=== PATIENT | female | born 1970 | race Caucasian/White ===

== ENCOUNTER 2017-04-18 23:28 | Observation (INO) | payer OTHER ==
[~2017-04-18] VITALS: Ht 170.2 cm; Wt 120.3 kg
--- NOTE | ~2017-04-18 | DS ---
PATIENT'S NAME: ILANA SPENCER [facility] AGE: 46 Y [address] ROOM: [address] [address] LOCATION: GPCU ADMIT DATE: 04/19/2017 Discharge Summary DISCHARGE DATE: 04/19/2017 FAMILY PHYSICIAN: PHYSICIAN, TIAN ATTENDING PHYSICIAN: Osorio Pitts DISCHARGE DIAGNOSES: 1. Esophagitis and gastritis. 2. Asthma. 3. Hypertension by history. PROCEDURE: Upper GI endoscopy by Dr. Henry. REASON FOR ADMISSION: Severe epigastric pain with a history of ulcers and recent nonsteroidal use. HOSPITAL COURSE: She was basically endoscoped by Dr. Henry, and he found the above. She is now perfectly asymptomatic and wants to go home. DISCHARGE INSTRUCTIONS: She will be discharged on diet and activity as ad nila and medications per nursing med recon form. I went over with her in great detail the fact that she needs to avoid nonsteroidals, and I think she understands at this point, but we will continue to reinforce that with her. Recommended she follow up with her primary doctor in 1 month for CBC and just general followup, sooner p.r.n. MD TYREE NG/denilson /[id number] d: 04/20/17 0404 t: 04/25/17 1739, DISCHARGE SUMMARY
--- NOTE | ~2017-04-18 | CON ---
PATIENT'S NAME: ILANA SPENCER [facility] AGE: 46 Y [address] ROOM: [address] [place], [place] [address] LOCATION: GPCU ADMIT DATE: 04/19/2017 Consultation DISCHARGE DATE: FAMILY PHYSICIAN: PHYSICIAN, TIAN ATTENDING PHYSICIAN: DWIGHT BROWN DATE OF CONSULTATION: 04/19/2017 REASON FOR CONSULTATION: Mid epigastric discomfort. HISTORY OF PRESENT ILLNESS: This is a very pleasant 46-year-old female who was admitted with midepigastric pain and bilateral hand numbness and swelling. The patient does recall having a history of peptic ulcer disease with the last endoscopy performed in May of 2016 in [place]. At that time, she states that she was diagnosed with 5 to 6 peptic ulcers as well as tested positive for Helicobacter. At that time, she was placed on antibiotics that she is unsure of type as well as Dexilant. The patient states that she had done well over the past few months until approximately a month ago when she discontinued her Dexilant secondary to insurance issues. The patient also had noticed increased swelling and numbness in her bilateral hands and feet. She began taking ibuprofen 800 mg daily over the past week to decrease the swelling. Yesterday, she began having complaints of severe mid epigastric discomfort. She does note, over the past few weeks, she has noticed increase in heartburn, specifically at night and with lying down. She denies any change in her bowel movements, though she does state that she is on her period. So "it is hard to distinguish." She denies any acute chest pain, chest pressure, shortness of breath, fever, chills, night sweats, or weight loss. She also recently underwent a colonoscopy approximately a month ago secondary to some bright red blood per rectum. She states at that time, she was diagnosed with diverticulitis and hemorrhoids. PAST MEDICAL HISTORY: 1. History of peptic ulcer disease without perforation diagnosed on upper endoscopy in May 2016. At that time, she also tested positive for H pylori, undergoing antibiotic therapy and PPI treatment. 2. Gastroesophageal reflux disease. 3. Asthma. 4. Hypertension. 5. History of diverticulitis. 6. History of hemorrhoids. PAST SURGICAL HISTORY: Left breast lump removal, tonsillectomy, upper endoscopy in May 2016 at an [facility] AGE: 46 Y [address] ROOM: [id number] [place], [place] [address] LOCATION[facility] ADMIT DATE: 04/19/2017 Consultation DISCHARGE DATE: FAMILY PHYSICIAN: PHYSICIAN, NO ATTENDING PHYSICIAN: DWIGHT BROWN outside facility, and colonoscopy approximately a month ago at an outside facility as well. SOCIAL HISTORY: The patient is a former cigarette smoker and smoked a pack per day. She quit roughly one year ago. Denies any illicit drug use or alcohol use. FAMILY HISTORY: The patient's father is healthy. The patient's mother has type 2 diabetes. She denies any known gastrointestinal diseases or cancers to her knowledge. ALLERGIES: NO KNOWN MEDICATION ALLERGIES. CURRENT MEDICATIONS: Please refer to the medication administration record. REVIEW OF SYSTEMS: An all-point review of systems was completed, all were negative except for those identified in the History of Present Illness. PHYSICAL EXAMINATION: GENERAL: A very pleasant 46-year-old female, lying in bed, who appears to be in no acute distress. VITAL SIGNS: Temperature 97.8, pulse of 66, respirations of 12, blood pressure 165/70, and oxygen saturation is 96% on room air. SKIN: [place], warm, and dry. No jaundice. HEENT: Head is normocephalic and atraumatic. Pupils equal, round, and reactive to light. Sclerae are clear, nonicteric. Oral mucosa is pink and moist. No thyromegaly. NECK: Soft and supple. CARDIOVASCULAR: Regular. Normal S1 and S2. RESPIRATORY: Respirations even and unlabored. Lungs are clear to auscultation. ABDOMEN: Soft and round. Tender in the midepigastric area as well as slightly in the right upper quadrant. No rebound, rigidity, or guarding noted. Bowel sounds are positive x4 quadrants. MUSCULOSKELETAL: No muscle weakness or atrophy. EXTREMITIES: 1+ edema noted to the bilateral hands as well as feet. NEUROLOGICAL: Grossly nonfocal. LABORATORY AND DIAGNOSTIC DATA: Cardiac enzymes have been within normal limits. CBC included a white blood cell count of 9.3, hemoglobin of 13.3, hematocrit of 39.9, and platelets of 301. Chemistry panel includes a glucose of 92, BUN of 16, creatinine 0.6, PATIENT'S NAME: ILANA SPENCER [facility] AGE: 46 Y [address] ROOM: [id number] [place], [place] [address] LOCATION: GPCU ADMIT DATE: 04/19/2017 Consultation DISCHARGE DATE: FAMILY PHYSICIAN: PHYSICIAN, NO ATTENDING PHYSICIAN: DWIGHT BROWN sodium 140, potassium of 3.6, chloride of 107, and CO2 of 24. Albumin of 3.8. AST of 24, ALT of 45, and alkaline phosphatase of 65. Total bilirubin 0.3. Hemoglobin A1c is 5.2. Prothrombin time 10.0, INR is 0.95, and PTT of 28. Amylase is 36 and lipase is 28. KUB was also completed to rule out any free air, and KUB shows no free air. ASSESSMENT AND PLAN: Again, this is a very pleasant 46-year-old female with known history of peptic ulcer disease, previously on Dexilant therapy, though discontinued approximately a month ago. She also states that over the past week to 2 weeks, she has been utilizing NSAIDs daily secondary to swelling in her hands and feet. At this time, the patient's hemoglobin is stable. She denies any known evidence of blood loss. We will go forth with an upper endoscopy for further evaluation of the midepigastric pain with differentials including peptic ulcer disease versus NSAID-induced ulcer. She is currently on Protonix 40 mg IV b.i.d. This should be continued until further recommendations. Thank you for this consult. MORENITA CRUZ APRN FOR MD JONATHAN STERN/modbetsey /[id number] d: 04/19/17 1651 t: 04/24/17 1210, CONSULTATION REPORT
--- NOTE | ~2017-04-18 | ER ---
[facility] 46 Y [address] ROOM: [place] [address] LOCATION: GPCU ADMIT DATE: 04/19/2017 ER/Outpatient Report DISCHARGE DATE: FAMILY PHYSICIAN: PHYSICIAN, NO ATTENDING PHYSICIAN: DWIGHT BROWN Time of Arrival: 2328. Time Seen: 2335. IDENTIFICATION: 46-year-old female. CHIEF COMPLAINT: Vomiting and heartburn. HISTORY OF PRESENT ILLNESS: The patient is a 46-year-old female, who presents complaining of heartburn started at approximately 7:00 p.m. tonight. She describes it as a burning sensation across the left side of her chest and pain and discomfort in her left arm. She has also had increasing amount of belching for the past 1 hour. She has had nausea and vomiting x3. She has been chilled and she is short of breath. She has had some symptoms of heartburn increasing in severity over the last several weeks, nothing this severe. She has a history of hypertension and hyperlipidemia. No family history of premature coronary artery disease. PAST MEDICAL HISTORY: ALLERGIES: NO KNOWN DRUG ALLERGIES. CURRENT MEDICATIONS: That she could recall, she does not have a list include: 1. Wellbutrin. 2. Linzess. 3. Triamterene. 4. Dexilant. 5. Albuterol. 6. QVAR. 7. Pravastatin. 8. A blood pressure medicine. She had been out of these medications due to some insurance change and just restarted them all today. Pain is 8/10 on the pain scale. She has had no diarrhea or constipation. PATIENT'S NAME: ILANA SPENCER [facility] AGE: 46 Y [address] ROOM: [address] [address] LOCATION: GPCU ADMIT DATE: 04/19/2017 ER/Outpatient Report DISCHARGE DATE: FAMILY PHYSICIAN: PHYSICIAN, NO ATTENDING PHYSICIAN: DWIGHT BROWN MEDICAL PROBLEMS: Asthma, hypertension, depression, irritable bowel syndrome, peptic ulcer disease, diverticulitis. PRIOR SURGERIES: Colonoscopy. SOCIAL HISTORY: The patient lives in [place]. She teaches preschool. Tobacco use, denies. Alcohol use, denies. Drug use, denies. REVIEW OF SYSTEMS: All systems reviewed and negative other than what is noted in the HPI. Last menstrual period is current. FAMILY HISTORY: Positive for diabetes. No family history of premature coronary artery disease. PHYSICAL EXAMINATION: VITAL SIGNS: Height 5 feet 7 inches and weight 119.6 kg. Blood pressure 197/103, pulse 75, respirations 24, temperature 97.2, and saturations 96%. GENERAL: 46-year-old female, in obvious distress. HEENT: Unremarkable. LUNGS: Clear to auscultation. HEART: Regular rate and rhythm. ABDOMEN: Soft and nondistended. No hepatosplenomegaly. No palpable masses. Nontender. SKIN: [place], warm, and dry. No lesions or rashes noted. No chest wall tenderness. NEUROLOGIC: The patient is alert and oriented x4. Cranial nerves 2 through 12 grossly intact. Motor strength 5/5 throughout. Sensation is intact to light touch. She feels like her arms and legs are swollen. She has no appreciable edema. She does have a slight right calf tenderness. EMERGENCY DEPARTMENT COURSE: An IV was initiated. EKG was emergently obtained at 11:40 p.m., normal sinus rhythm at 80 beats per minute. No acute ST elevation or depression. No prior EKG available for comparison. Repeat EKG at 0055, normal sinus rhythm at 68 beats per minute. No acute ST elevation or depression. No change from earlier EKG. The patient was given 4 baby aspirin. She is given a GI cocktail with slight improvement, but her pain then resumed including her left arm. D-dimer less than 0.19, hemoglobin 13.3, hematocrit 39.9, platelets 301, white count 9.3, normal differential. INR 0.95. HCG less than 1. Chemistry panel is normal. Cardiac enzymes negative. Amylase and lipase normal. PATIENT'S NAME: ILANA SPENCER [facility] AGE: 46 Y [address] ROOM: [address] [address] [facility] AD[facility]: 04/19/2017 ER/Outpatient Report DISCHARGE DATE: FAMILY PHYSICIAN: PHYSICIAN, NO ATTENDING PHYSICIAN: DWIGHT BROWN ProBNP normal. Two-hour enzymes negative. Chest x-ray, no acute process, pending radiology over-read. When the patient's pain escalated again, she was given 40 mg of IV Protonix and then she was given one sublingual nitroglycerin. Side effects were discussed with her prior to giving her the sublingual nitroglycerin. After the nitroglycerin tablet, she stated she needed to use the restroom, was having bilateral arm numbness. She sat up in bed and said she did not feel well, felt like she was going to pass out. Blood pressure was 155/90. The head of the bed was lowered, heart rate was 45. She became diaphoretic, drowsy. The patient was given 1 L of normal saline bolus. Heart rate improved, blood pressure improved, and she was feeling much better. IMPRESSION: 1. Chest pain. 2. Gastroesophageal reflux disease. 3. Episode of hypotension and bradycardia, probably secondary to nitroglycerin. 4. Depression. 5. Possible anxiety and panic attack. PLAN: Plan for observation, admission for serial EKG and enzymes per Dr. Brown. LOREE ALVES MD CAR/modbetsey /[id number] d: 04/19/17 0537 t: 04/23/17 0650, OUTPATIENT REPORT
--- NOTE | ~2017-04-18 | HP ---
PATIENT'S NAME: ILANA SPENCER [facility] AGE: 46 Y [address] ROOM: [id number] [place], [place] [address] LOCATION: GPCU ADMIT DATE: 04/19/2017 History & Physical DISCHARGE DATE: FAMILY PHYSICIAN: PHYSICIAN, TIAN ATTENDING PHYSICIAN: DWIGHT BROWN DATE OF SERVICE: CHIEF COMPLAINT: Epigastric pain and numbness in bilateral hands and also numbness in bilateral feet. HISTORY OF PRESENT ILLNESS: This is a 46-year-old female who says that she has had a history of peptic ulcer disease where she had an EGD performed on May of 2016 back in [place]. At that time, she was told she had 5 to 6 peptic ulcer disease in the stomach area and she was also tested positive for Helicobacter pylori where she underwent treatment with PPI and also with antibiotics. After completion of the treatment, she was feeling fine. However, she has been using ibuprofen for the last week every day by taking 4 tablets, and then last night around 7 p.m., she started feeling this pain in the epigastric area with belching and also felt nauseous and also vomited 3 times. She went to get some Pepto-Bismol which provided relief, but later on the pain came back. Her last bowel movement was this morning, but she could not really see the color of the stool because she is on her period and the period blood had mixed with the stool, but she denies ever seeing any black stool except when she was taking iron in the past. Because of the worsening of the epigastric pain, the patient came here for evaluation. The patient denies any myocardial infarction or heart failure history in the past. Her other medical problem includes hypertension and asthma and gastroesophageal reflux disease and the prior history of peptic ulcer disease as mentioned before. Her last colonoscopy was done 1 month ago in [place] where she was told she had diverticulitis and also hemorrhoids and also got a colonic biopsy of the polyp, the result is still pending. Her diverticulitis at that time was treated with antibiotics and she recovered. As mentioned before, her last EGD was done in May of 2016 at [place]. At that time, it showed 5 to 6 peptic ulcer disease in the stomach. She never had perforated viscus before. REVIEW OF SYSTEMS: As mentioned in the history of present illness. All other systems were reviewed and were negative except those mentioned in the history of present illness. PATIENT'S NAME: ILANA SPENCER [facility] AGE: 46 Y [address] ROOM: [place] [address] LOCATION: GPCU ADMIT DATE: 04/19/2017 History & Physical DISCHARGE DATE: FAMILY PHYSICIAN: PHYSICIAN, NO ATTENDING PHYSICIAN: DWIGHT BROWN PAST MEDICAL HISTORY: 1. Prior history of peptic ulcer disease, 5 to 6 ulcers in the stomach without perforation diagnosed on EGD back in May 2016 in [place]. At that time, she was also tested positive for H. pylori for which she underwent antibiotic and PPI treatment. 2. Gastroesophageal reflux disease. 3. Asthma. 4. Hypertension. 5. History of diverticulitis in the past. 6. History of hemorrhoids. ALLERGIES: NONE. HOME MEDICATIONS: Currently is being reconciled. SOCIAL HISTORY: The patient was a former cigarette smoker and she smoked about 1 packet every month for roughly 10 years and she quit about 1 year ago already. She denies any illegal drug or alcohol use. PAST SURGICAL HISTORY: 1. Left breast lump removal. 2. Tonsillectomy. FAMILY HISTORY: Father is healthy. Mother has type 2 diabetes. PHYSICAL EXAMINATION: VITAL SIGNS: At the time of my evaluation, temperature was 98, respiration was 14, blood pressure was 138/90, saturation was 99% on room air, and heart rate was 76. GENERAL APPEARANCE: The patient is alert and oriented x3. Currently, in no acute distress. HEENT: Pupils equal, round, and reactive to light. Extraocular muscles intact. Anicteric sclerae. Nasal turbinates are normal bilaterally. Moist oral mucosa. NECK: No JVD. CARDIOVASCULAR: Regular rate and rhythm. Normal S1 and S2. No murmur. No rubs. No gallops. RESPIRATORY: Clear to auscultation. No rales. No rhonchi. No wheezing. No crackles. ABDOMEN: Mild epigastric pain on palpation. No rebound tenderness. No PATIENT'S NAME: ILANA SPENCER [facility] AGE: 46 Y [address] ROOM: [place] [address] LOCATION: GPCU ADMIT DATE: 04/19/2017 History & Physical DISCHARGE DATE: FAMILY PHYSICIAN: PHYSICIAN, NO ATTENDING PHYSICIAN: DWIGHT BROWN abdominal rigidity. Bowel sounds present. No mass. Nondistended. EXTREMITIES: No edema in upper or lower extremities. SKIN: No ulcer. No rash. No cyanosis. NEUROLOGICAL: Slight decrease in sensation in fingertips of both hands and also in toes of both feet. No slurred speech. No facial droop. No pronator drift. No muscle weakness. LABORATORY DATA: Troponin less than 0.04. ProBNP less than 30 seconds. CPK 115. White blood cell 9.3, hemoglobin 13.3, platelets 301. Hematocrit 39.9, glucose 92, BUN 16, creatinine 0.6. Sodium 140, potassium of 3.6, chloride 107, CO2 of 24, calcium 9.2, total protein 7.6, albumin 3.8, AST 24, ALT 45, alkaline phosphatase 65, total bilirubin 0.3, magnesium 2.3. Anion gap 12.6. INR 0.95, PTT 28. GFR more than 90. Amylase 36, lipase 128. CK-MB 1.4. Urinary test negative. D-dimer less than 0.19. IMAGING STUDIES: Chest x-ray currently has been taken. ASSESSMENT AND PLAN: 1. Regarding her epigastric pain: My differential here will be NSAID- induced gastritis or peptic ulcer disease. N.p.o. IV fluids. I will give her IV Protonix 40 mg b.i.d. In addition, I will add Tums 2 tablets p.o. 4 times a day. I will consult GI in the morning for possible endoscopy given that she does have a history of 5 to 6 peptic ulcer disease in the stomach that was detected roughly a year ago back in [place]. I will be getting a KUB right now to make sure there is no free air. Helicobacter pylori testing could be obtained from biopsy when an upper endoscopy is performed. Further plan will depend on clinical course. 2. Regarding her depression: Continue home medication with the Wellbutrin. 3. Regarding her history of hypertension: We will hold off on the home diuretics in the setting of n.p.o. and also in the setting of giving her IV hydration. 4. Regarding her asthma: Well controlled. Continue home inhalers. 5. Regarding her gastroesophageal reflux disease: As mentioned before in #1. Refer to #1 for other details. 6. Regarding her numbness in both hands and both legs: The patient states that she also has polyuria and polyphagia and polydipsia. I suspect patient might have diabetes due to the peripheral neuropathy from numbness in both hands and also in both legs especially during night at sleep. For that reason, I will be checking a hemoglobin A1c to screen for diabetes. Stroke will be less likely. The patient looks too good to be having a stroke. There is no facial droop. There is no pronator PATIENT'S NAME: ILANA SPENCER [facility] AGE: 46 Y [address] ROOM: [id number] [place], [place] [address] [facility] AD[facility] DATE: 04/19/2017 History & Physical DISCHARGE DATE: FAMILY PHYSICIAN: PHYSICIAN, NO ATTENDING PHYSICIAN: DWIGHT BROWN, and there is no slurred speech. 7. She is a full code. 8. Deep vein thrombosis prophylaxis will be compression devices. Time spent in care on the day of admission 45 minutes, where 10 minutes was spent on chart review and the remainder of the time spent in interview, physical examination, and also on counseling. The counseling includes going over the plan of care with the patient and addressing all the questions and concerns the patient had to her satisfaction. I also went over the plan of care in detail with the patient and the patient's at the bedside. I also went over the plan of care with the nurse. DWIGHT BROWN MD CC/denilson /[id number] D: T: [id number] HISTORY & PHYSICAL
[2017-04-19 00:13] LABS: BASOPHIL # 0.1 K/uL (0.0-0.2); BASOPHIL % 0.6 %; EOSINOPHIL # 0.1 K/uL (0.0-0.5); EOSINOPHIL % 1.5 %; HEMATOCRIT 39.9 % (33.0-46.0); HEMOGLOBIN 13.3 g/dL (10.0-15.0); IMMATURE GRANULOCYTE % 0.3 %; LYMPHOCYTE # 2.9 K/uL (0.8-4.0); LYMPHOCYTE % 30.9 %; MCH 27.8 pg (27.0-34.0); MCHC 33.3 gm/dL (32.0-36.5); MCV 83.5 fl (83.0-98.0); MONOCYTE # 0.7 K/uL (0.0-1.0); MPV 8.6 fl (9.4-12.4); NEUTROPHIL # (ANC) 5.4 K/uL (1.8-7.8); NEUTROPHIL % 58.7 %; NRBC % 0 /100WBC (0-0.00); PLATELET COUNT 301 K/uL (150-450); RBC 4.78 M/uL (3.50-5.50); RDW-CV 14.2 % (11.9-14.6); WBC 9.3 K/uL (4.0-11.0)
[2017-04-19 00:20] LABS: INR - (THERAPEUTIC) 0.95 (0.92-1.07); PTT 28 SECONDS (25-32)
[2017-04-19 00:26] LABS: ALBUMIN 3.8 gm/dL (3.5-5.0); ALK PHOS 65 IU/L (33-138); ALT 45 IU/L (12-78); ANION GAP 12.6 (10.0-19.0); AST 24 IU/L (10-40); BLOOD UREA NITROGEN 16 mg/dL (6-24); CALCIUM 9.2 mg/dL (8.5-10.5); CHLORIDE 107 mMol/L (96-110); CO2 24 mMol/L (22-32); CPK 146 IU/L (21-215); CREATININE 0.6 mg/dL (0.5-1.1); MAGNESIUM 2.3 mg/dL (1.8-2.6); POTASSIUM 3.6 mMol/L (3.7-5.1); SODIUM 140 mMol/L (135-145); TOTAL BILIRUBIN 0.3 mg/dL (0.0-1.5); TOTAL PROTEIN 7.6 g/dL (6.0-8.4)
[2017-04-19 02:15] LABS: CPK 115 IU/L (21-215)
[2017-04-19] MEDS ORDERED: LINZESS145 MCG PO (03:54)
[2017-04-19] MEDS ORDERED: WELLBUTRIN XL300 M2 PO (03:54)
[2017-04-19] MEDS ORDERED: MAXZIDE 37.5 M1 EACH PO (03:55)
[2017-04-19] MEDS ORDERED: LINZESS290 MCG PO (04:00)
[2017-04-19] MEDS ORDERED: DEXILANT60 MG PO (04:03)
[2017-04-19] MEDS ORDERED: PROVENTIL OR V6.7 GM INH (04:03)
[2017-04-19] MEDS ORDERED: PRAVACHOL80 MG PO (04:04)
[2017-04-19] MEDS ORDERED: QVAR8.7 G1 INH (04:04)
[2017-04-19] MEDS ORDERED: VITAMIN D5000 UNIT PO (04:05)
[2017-04-19] MEDS ORDERED: NEURONTIN300 MG PO (04:05)
== END 2017-04-19 17:25 | disposition disaster alternative care site (69) ==
LOC: GMED 23:28 → GPCU 04-19 02:36
PROVIDERS: Family Medicine; ADMIT Internal Medicine
PROC: 0DB68ZX Excision of Stomach, Via Natural or Artificial Opening Endoscopic, Diagnostic (ICD-10-PCS; principal; 2017-04-19)
DX: K31.7 Polyp of stomach and duodenum (principal); K29.50 Unspecified chronic gastritis without bleeding; K21.0 Gastro-esophageal reflux disease with esophagitis; J45.909 Unspecified asthma, uncomplicated; I10 Essential (primary) hypertension; Z98.890 Other specified postprocedural states; Z79.899 Other long term (current) drug therapy
CPT/HCPCS: C9113; J0461; J2405; J3480; J7030